=== PATIENT | female | born 1990 | race Caucasian/White ===

== ENCOUNTER 2023-10-10 18:15 | Emergency (ER) | payer OTHER ==
[~2023-10-10] VITALS: Ht 165.1 cm; Wt 63.5 kg
[2023-10-10 18:26] VITALS: BP_SYST 114; PULSE 82; RESP 16; TEMP 98
[2023-10-10 19:25] LABS: INFLUENZA TYPE A Negative (NEGATIVE); INFLUENZA TYPE B NEGATIVE (NEGATIVE)
[2023-10-10] MEDS ORDERED: ALBMDI INH (19:34)
[2023-10-10] MEDS ORDERED: PRED20TA PO (19:34)
[2023-10-10 19:50] VITALS: BP_SYST 114; PULSE 82; RESP 16; TEMP 98; O2SAT 98
== END 2023-10-10 19:45 | disposition home or self-care (01) ==
LOC: SED 18:15
DX: J40 Bronchitis, not specified as acute or chronic (principal); R05.9 Cough, unspecified; R09.81 Nasal congestion; Z79.899 Other long term (current) drug therapy; Z20.822 Contact with and (suspected) exposure to COVID-19
CPT/HCPCS: 36415; 71045; 99284